=== PATIENT | female | born 1950 | race Caucasian/White ===

== ENCOUNTER → 2018-01-15 07:38 | Outpatient (CLI) | payer MEDICARE, OTHER, SELFPAY ==
[2018-01-15 08:40] LABS: Alanine Aminotransferase 26 IU/L (9-52); Albumin 4.2 g/dL (3.5-5.0); Albumin Globulin Ratio 1.4 (1.0-2.8); Alkaline Phosphatase 47 U/L (38-126); Aspartate Aminotransferase 19 IU/L (14-36); BUN Creatinine Ratio 27.1 (6-22); Bilirubin Total 0.6 mg/dL (0.2-1.3); Blood Urea Nitrogen 19 mg/dL (7-17); Calcium 9.4 mg/dL (8.4-10.2); Carbon Dioxide 32 mmol/L (22-32); Chloride 107 mmol/L (98-107); Cholesterol 242 mg/dL (140-199); Estimated Glomerular Filt Rate > 60.0 mL/min (>60); Glucose 92 mg/dL (80-110); HDL Cholesterol 64 mg/dL (40-60); HEMOLYSIS < 15 (0-50); LDL Cholesterol Calculated 165 mg/dL (<100); Potassium 4.2 mmol/L (3.4-5.1); Sodium 146 mmol/L (137-145); Total Protein 7.2 g/dL (6.3-8.2); Triglycerides 63 mg/dL (35-150)
== END ==
PROVIDERS: PCP Physician Assistant; Visit Provider Physician Assistant
DX: M85.80 Other specified disorders of bone density and structure, unspecified site (principal)
CPT/HCPCS: 36415; 80053; 80061

== ENCOUNTER → 2018-01-30 12:55 | Outpatient (CLI) | payer MEDICARE, OTHER, SELFPAY ==
[2018-02-02 16:14] LABS: Fecal Immunochemical Test NOT DETECTED
== END ==
PROVIDERS: Family Provider Physician Assistant; PCP Physician Assistant; Visit Provider Physician Assistant
DX: Z12.11 Encounter for screening for malignant neoplasm of colon (principal)
CPT/HCPCS: 82274

== ENCOUNTER → 2018-02-01 08:42 | Outpatient (CLI) | payer MEDICARE, OTHER, SELFPAY ==
--- NOTE | 2018-02-01 08:43 | DI.MG.S_ITS ---
BILATERAL DIGITAL SCREENING MAMMOGRAM 3D/2D WITH CAD: 02/01/2018 CLINICAL: Routine screening. Comparison is made to exams dated: 09/17/2016 mammogram, 03/21/2015 mammogram, and 05/14/2013 mammogram - [facility]. There are scattered fibroglandular elements in both breasts. Current study was also evaluated with a Computer Aided Detection (CAD) system. There is an asymmetry in the right breast posterior depth outer region seen on the craniocaudal view only. No other significant masses, calcifications, or other findings are seen in either breast. IMPRESSION: INCOMPLETE: NEEDS ADDITIONAL IMAGING EVALUATION The asymmetry in the right breast is indeterminate. Additional views with possible ultrasound are recommended. This exam was interpreted at Station ID: [id number]. NOTE: For mammograms, a report in lay terms will be sent to the patient. Approximately 15% of breast malignancies will not be visualized mammographically. In the management of a palpable breast mass, a negative mammogram must not discourage biopsy of a clinically suspicious lesion. Electronically Signed By: Terence Quijano M.D. ecl/:02/03/2018 08:48:13 letter sent: Additional Imaging Needed ACR BI-RADS Category 0: Incomplete 3340F
== END ==
PROVIDERS: Family Provider Physician Assistant; PCP Physician Assistant; Visit Provider Physician Assistant
DX: Z12.31 Encounter for screening mammogram for malignant neoplasm of breast (principal)
CPT/HCPCS: 77063; 77067

== ENCOUNTER → 2018-02-21 08:36 | Outpatient (CLI) | payer MEDICARE, OTHER, SELFPAY ==
--- NOTE | 2018-02-21 | DI.MG.S_ITS ---
UNILATERAL RIGHT DIGITAL DIAGNOSTIC MAMMOGRAM 3D/2D WITH ADDITIONAL VIEWS: 02/21/2018 CLINICAL: Additional evaluation requested from prior study. Comparison is made to exams dated: 02/01/2018 mammogram, 09/17/2016 mammogram, and 03/21/2015 mammogram - [facility]. There are scattered fibroglandular elements in right breast. There is a subtle asymmetry in the right breast posterior depth at 7 o'clock. This is less prominent on additional views. No other significant masses or calcifications are seen in the breast. IMPRESSION: INCOMPLETE: NEEDS ADDITIONAL IMAGING EVALUATION The asymmetry in the right breast is indeterminate. A targeted ultrasound of the right breast is recommended and will be performed immediately following this exam. This exam was interpreted at Station ID: [id number]. NOTE: For mammograms, a report in lay terms will be sent to the patient. Approximately 15% of breast malignancies will not be visualized mammographically. In the management of a palpable breast mass, a negative mammogram must not discourage biopsy of a clinically suspicious lesion. Electronically Signed By: Hellen Chavez M.D. lk/:02/21/2018 09:14:46 letter sent: Additional Imaging Needed ACR BI-RADS Category 0: Incomplete 3340F
--- NOTE | 2018-02-21 08:38 | DI.US.S_ITS ---
ULTRASOUND OF RIGHT BREAST: 02/21/2018 CLINICAL: Patient returns for additional imaging over a suspected mass in the right breast. Comparison is made to exams dated: 02/21/2018 mammogram, 02/01/2018 mammogram, and 09/17/2016 mammogram - [facility]. Color flow, real-time, and Doppler ultrasound of the right breast were performed on the areas of interest. There is a 1.8 cm x 1.4 cm x 1.4 cm irregular mass in the right breast at 7 o'clock middle depth. This irregular mass displays posterior acoustic shadowing. This correlates with mammography findings. IMPRESSION: SUSPICIOUS OF MALIGNANCY The 1.8 cm x 1.4 cm x 1.4 cm irregular mass in the right breast is at an intermediate suspicion for malignancy. An ultrasound guided biopsy is recommended. This exam was interpreted at Station ID: [id number]. SUMMARY: This was discussed with the patient by Dr. Jez Grace at [facility] at the time of the exam. Electronically Signed By: Hellen Chavez M.D. lk/:02/21/2018 13:37:17 letter sent: Biopsy Required Ultrasound BI-RADS: 4b Suspicious abnormality - intermediate suspicion of malignancy
== END ==
PROVIDERS: Family Provider Physician Assistant; PCP Physician Assistant; Visit Provider Physician Assistant
DX: R92.8 Other abnormal and inconclusive findings on diagnostic imaging of breast (principal); N63.13 Unspecified lump in the right breast, lower outer quadrant
CPT/HCPCS: 76642; 77065; G0279

== ENCOUNTER → 2018-03-14 12:39 | Outpatient (CLI) | payer MEDICARE, OTHER, SELFPAY ==
--- NOTE | 2018-03-14 | DI.US.S_ITS ---
ULTRASOUND OF RIGHT BREAST: 03/14/2018 CLINICAL: Pt sched for biopsy but no focal mass could be seen today. Comparison is made to exams dated: 02/21/2018 ultrasound, 02/21/2018 mammogram, 02/01/2018 mammogram, 09/17/2016 mammogram, and 03/21/2015 mammogram - [facility]. Color flow and real-time ultrasound of the right breast were performed on the areas of interest. Urena scale images of the real-time examination were reviewed. The 1.8 cm x 1.4 cm x 1.4 cm irregular mass in the right breast at 7 o'clock middle depth is no longer seen. The planned biopsy was therefore cancelled. IMPRESSION: PROBABLY BENIGN A follow-up mammogram and an ultrasound in 6 months is recommended to demonstrate stability. Findings and recommendations were discussed in detail with the patient at the time of the examination and all questions were answered. This exam was interpreted at Station ID: [id number]. Electronically Signed By: Eduardo shay/:03/14/2018 13:50:06 letter sent: Followup Recommended Ultrasound BI-RADS: 3 Probably benign
== END ==
PROVIDERS: Family Provider Physician Assistant; PCP Physician Assistant; Visit Provider Physician Assistant
DX: R92.8 Other abnormal and inconclusive findings on diagnostic imaging of breast (principal); N63.13 Unspecified lump in the right breast, lower outer quadrant
CPT/HCPCS: 76642

== ENCOUNTER 2018-04-03 21:41 | Emergency (ER) | payer MEDICARE, OTHER, SELFPAY ==
[2018-04-03 21:58] VITALS: BP 138/74; PULSE 69; RESP 22; TEMP 36.8; O2SAT 100; BMI 25.4
--- NOTE | 2018-04-03 22:06 | ED_ITS ---
HPI - Syncope General Chief Complaint: Syncope Stated Complaint: NOT FEELING WELL, PASSED OUT EARLIER Time Seen by Provider: 04/03/18 21:53 Source: patient and family Mode of arrival: ambulatory Limitations: no limitations History of Present Illness HPI narrative: Patient is a 67-year-old otherwise healthy female here for evaluation of a syncopal episode that occurred earlier today. The patient states that she had a friend over. She states that they did have something the eat and after the friend left she started have some lower abdominal cramping. She states that she went to go use the restroom. She states that she did have a well-formed bowel movement that was not for her to go to the bathroom. She states that while she was sitting on the toilet she became lightheaded. She called for her who came into the restroom. When she stood up the stated that the patient did pass out. She did not fall or hit her head. The was able to get the patient to the bed. There was no seizure -like activity. Patient states she continued to not feel very good. She again had to go use the restroom when she went to the bathroom had a large very loose bowel movement that did have some bright red blood in it. The patient states that since then she has not felt very well. No fevers. No headache. Is still occasionally having some crampy abdominal pain but has not had another bowel movement since the loose bowel movement. No urinary symptoms. No vaginal bleeding. Related Data Home Medications Medication Instructions Recorded Confirmed [VITAMIN D] 800 iu PO QDAY #0 08/27/16 01/22/18 multivitamin PO 01/22/18 01/22/18 Previous Rx's Medication Instructions Recorded pneumococcal 13-angy conj 0.5 ml IM ONCE #0.5 ml 01/22/18 vaccine-dip crm (PF) 0.5 mL IM syringe varicella-zoster glycoE vacc-[id number] 0.5 ml IM ONCE #1 each 01/22/18 adj(PF) 50 mcg/0.5 mL IM susp, kit Allergies Allergy/AdvReac Type Severity Reaction Status Date / Time codeine [CODEINE] AdvReac Mild DISORIENTED Verified 04/03/18 21:58 Review of Systems Constitutional Reports fatigue, Denies fever(s), Denies frequent falls, Reports lethargy and Reports malaise Eyes Denies blurry vision, Denies change in vision and Denies diplopia Cardiovascular Denies chest pain, Denies palpitations and Denies dyspnea Respiratory Denies cough and Denies dyspnea Gastrointestinal Gastrointestinal: Reports hematochezia, Denies constipation, Reports cramping, Reports diarrhea, Reports loose stools, Denies nausea and Denies vomiting Genitourinary Denies dysuria Musculoskeletal Denies myalgias and Denies arthralgias Integumentary/Breasts Denies lesions and Denies rash Neurologic Denies frequent falls Endocrine Reports fatigue and Denies palpitations Hematologic/Lymphatic Denies easy bleeding and Denies easy bruising PFSH Medical History Osteopenia (Chronic ~2013) Hyperlipemia (Resolved ~2007) Surgical History Hx of cervical polypectomy (Resolved ~06/2010) Hx of skin graft (Resolved 10/2011) Hx of tubal ligation (Resolved 1982) Family History Father Malignant melanoma, unspecified site Mother Hyperlipidemia Social History Smoking Status: Never smoker Exam Initial Vital Signs Initial Vital Signs: Vital Signs Temperature 98.3 F 04/03/18 21:58 Pulse Rate 69 04/03/18 21:58 Respiratory Rate 22 04/03/18 21:58 Blood Pressure 138/74 04/03/18 21:58 Pulse Oximetry 100 04/03/18 21:58 Const General: cooperative, comfortable, well developed, well groomed and No acute distress Orientation: alert, awake and oriented x3 HENMT Head: normal to inspection and normocephalic Resp Effort & Inspection: normal respiratory effort Auscultation: clear to auscultation bilaterally Cardio Rate: regular rate Rhythm: regular rhythm Pulses: radial pulses present GI Inspection: non-distended Palpation: soft and No firm Skin Lesions: no lesions Rashes: no rashes Neuro General: alert, awake and oriented x3 Cognition: normal cognition Speech: speech normal Gait: normal gait Motor: muscle tone normal throughout Sensory Exam: no sensory deficits noted Extrem General: normal to inspection and capillary refill normal Psych Appearance: grossly normal and well kempt Course Orders Ordered: ED Orders 04/03/18 22:00 EKG-12 Lead Stat 04/03/18 22:31 Complete Blood Count AUTO DIFF Stat Comprehensive Metabolic Panel Stat Lipase Stat Discontinued Medications Sodium Chloride (Normal Saline 0.9%) 1,000 mls @ 1,000 mls/hr IV BOLUS ONE Stop: 04/03/18 23:16 Last Infusion: 04/04/18 00:26 Dose: 0 mls/hr Admin: 04/03/18 22:45 Dose: 1,000 mls/hr Vital Signs - 8 hr 04/03/18 21:58 04/03/18 23:12 04/04/18 00:26 Temperature 98.3 F Pulse Rate 69 60 63 Respiratory Rate 22 18 Blood Pressure 138/74 129/68 Blood Pressure [Left Arm] 127/68 Pulse Oximetry 100 98 MDM - Syncope Lab Data Attestation: I reviewed the patient's lab results. Result diagrams: 04/03/18 22:31 04/03/18 22:31 Lab Results 04/03/18 04/03/18 Range/Units 22:31 22:31 WBC 12.8 H (4.5-11.0) X10^3/uL RBC 4.12 (4.0-5.2) X10^6/uL Hgb 12.4 (12.0-16.0) g/dL Hct 36.9 (36-46) % MCV 89.6 (80-100) fL MCH 30.1 (26-34) PG MCHC 33.6 (30-36) % RDW 13.1 (11.6-14.8) % Plt Count 183 (150-400) X10^3/uL Neut % (Auto) 84.8 H (50-75) % Lymph % (Auto) 10.3 L (25-40) % [place] % (Auto) 4.6 (3-14) % Eos % (Auto) 0.1 L (2-4) % Baso % (Auto) 0.2 (0-2) % Neut # (Auto) 55161 H (9344-1138) /uL Sodium 140 (137-145) mmol/L Potassium 3.6 (3.4-5.1) mmol/L Chloride 104 (98-107) mmol/L Carbon Dioxide 24 (22-32) mmol/L BUN 18 H (7-17) mg/dL Creatinine 0.60 (0.52-1.04) mg/dL Estimated GFR > 60.0 (>60) mL/min BUN/Creatinine Ratio 30.0 H (6-22) Glucose 134 H (80-110) mg/dL Calcium 9.3 (8.4-10.2) mg/dL Total Bilirubin 0.5 (0.2-1.3) mg/dL AST 23 (14-36) IU/L ALT 24 (9-52) IU/L Alkaline Phosphatase 54 (38-126) U/L Total Protein 7.2 (6.3-8.2) g/dL Albumin 4.4 (3.5-5.0) g/dL Globulin 2.8 (1.7-4.1) g/dL Albumin/Globulin Ratio 1.6 (1.0-2.8) Lipase 97 (23-300) U/L ECG Data Attestation: I personally reviewed and interpreted this ECG as follows: Prior ECG tracings: not available for review Interpretation: Sinus bradycardia Ventricular rate of 54 Normal axis Normal QRS Normal QTC No ST T wave changes MDM Narrative Medical decision making narrative: Patient's labs unremarkable. She has a benign abdominal exam. EKG is unremarkable. She is not hypotensive. She did not hit her head. Has a normal neurologic exam. I feel that a head CT would be unhelpful in the situation given her presenting symptoms in her history and physical exam. Her symptoms do very much sound like a vasovagal given the fact that she had just had a bowel movement, she became sweaty during the time in the was no signs of seizure. Patient is not anemic. Not hypotensive. One episode of bleeding with this bowel movement. Feel that we could hold on a abdominal CT for now. Patient did ambulate around the emergency department without any issues. She was in instructed to increase her fluid intake. She was given return precautions. She expressed understanding and agreement with plan. Discharge Plan Departure Patient Disposition: Home Clinical Impression: Vasovagal syncope Discharge Date/Time: 04/04/18 00:29 Interventions: ED Discharge Assessment Last Done: 04/04/18 00:26 Instructions: DI for Syncope in Adults (Fainting) Activity Restrictions/Additional Instructions: Recommend that for the next several days you increase your fluid intake especially if you continue to have diarrhea. I would talk with her primary care doctor about the blood that you had in her stool. If he starts to have worsening abdominal pain, fevers, you pass out again redeveloped any other new symptoms return to the emergency department. Continue all of your medications as directed. Prescriptions: No Action multivitamin PO RF: 0 pneumoc 13-angy conj-dip cr(PF) [Prevnar 13 (PF)] 0.5 mL syringe 0.5 ml IM ONCE Qty: 0.5 RF: 0 varicella-zoster gE-AS01B (PF) [Shingrix (PF)] 50 mcg/0.5 mL suspension for reconstitution 0.5 ml IM ONCE Qty: 1 RF: 1 [VITAMIN D] 800 iu PO QDAY Qty: 0 RF: 0
[2018-04-03 22:35] LABS: Add Manual Diff / Slide Review NO; Basophils Percent Auto 0.2 % (0-2); Eosinophils Percent Auto 0.1 % (2-4); Hematocrit 36.9 % (36-46); Hemoglobin 12.4 g/dL (12.0-16.0); Lymphocytes Percent Auto 10.3 % (25-40); Mean Corpuscular HGB Conc 33.6 % (30-36); Mean Corpuscular Hemoglobin 30.1 PG (26-34); Mean Corpuscular Volume 89.6 fL (80-100); Monocytes Percent Auto 4.6 % (3-14); Neutrophils Absolute Auto 10900 /uL (3000-5900); Neutrophils Percent Auto 84.8 % (50-75); Platelet Count 183 X10^3/uL (150-400); Red Blood Cell Count 4.12 X10^6/uL (4.0-5.2); Red Cell Distribution Width 13.1 % (11.6-14.8); White Blood Cell Count 12.8 X10^3/uL (4.5-11.0)
[2018-04-03] MEDS: SODIUM CHLORIDE 0.9% 1,000 ML 1000 ML IV (22:45)
[2018-04-03 22:50] LABS: Alanine Aminotransferase 24 IU/L (9-52); Albumin 4.4 g/dL (3.5-5.0); Albumin Globulin Ratio 1.6 (1.0-2.8); Alkaline Phosphatase 54 U/L (38-126); Aspartate Aminotransferase 23 IU/L (14-36); Bilirubin Total 0.5 mg/dL (0.2-1.3); Blood Urea Nitrogen 18 mg/dL (7-17); Calcium 9.3 mg/dL (8.4-10.2); Carbon Dioxide 24 mmol/L (22-32); Chloride 104 mmol/L (98-107); Estimated Glomerular Filt Rate > 60.0 mL/min (>60); Globulin 2.8 g/dL (1.7-4.1); Glucose 134 mg/dL (80-110); HEMOLYSIS < 15 (0-50); Lipase 97 U/L (23-300); Potassium 3.6 mmol/L (3.4-5.1); Sodium 140 mmol/L (137-145); Total Protein 7.2 g/dL (6.3-8.2)
[2018-04-03 23:12] VITALS: BP 127/68; PULSE 60; RESP 18; O2SAT 98
[2018-04-04 00:26] VITALS: BP 129/68; PULSE 63
== END 2018-04-04 00:29 | disposition home or self-care (01) ==
PROVIDERS: Emergency Provider Emergency Medicine; Family Provider Physician Assistant; PCP Physician Assistant
DX: R55 Syncope and collapse (principal)
CPT/HCPCS: 36591; 80053; 83690; 85025; 93005; 96360; 96361; 99283; 99284

== ENCOUNTER → 2018-04-04 12:11 | Outpatient (CLI) | payer MEDICARE, OTHER, SELFPAY ==
[2018-04-04 15:37] LABS: Sample 1 Time UNK TIME
[2018-04-04 15:38] LABS: Occult Blood 1 Positive (Negative)
[2018-04-04 15:41] LABS: Clostridium Difficile Tox PCR Negative for C. diff
== END ==
PROVIDERS: Family Provider Physician Assistant; PCP Physician Assistant; Visit Provider Physician Assistant
DX: K62.5 Hemorrhage of anus and rectum (principal); R10.32 Left lower quadrant pain
CPT/HCPCS: 82270; 87493

== ENCOUNTER → 2018-04-04 12:49 | Outpatient (CLI) | payer MEDICARE, OTHER, SELFPAY ==
[2018-04-04 13:06] LABS: Add Manual Diff / Slide Review NO; Basophils Percent Auto 0.2 % (0-2); Eosinophils Percent Auto 0.1 % (2-4); Hematocrit 37.3 % (36-46); Hemoglobin 12.7 g/dL (12.0-16.0); Mean Corpuscular HGB Conc 34.1 % (30-36); Mean Corpuscular Hemoglobin 30.4 PG (26-34); Mean Corpuscular Volume 89.2 fL (80-100); Monocytes Percent Auto 4.3 % (3-14); Neutrophils Absolute Auto 11300 /uL (3000-5900); Neutrophils Percent Auto 80.4 % (50-75); Platelet Count 174 X10^3/uL (150-400); Red Blood Cell Count 4.19 X10^6/uL (4.0-5.2); Red Cell Distribution Width 12.9 % (11.6-14.8); White Blood Cell Count 14.1 X10^3/uL (4.5-11.0)
== END ==
PROVIDERS: Family Provider Physician Assistant; PCP Physician Assistant; Visit Provider Physician Assistant
DX: K62.5 Hemorrhage of anus and rectum (principal); R10.32 Left lower quadrant pain
CPT/HCPCS: 36415; 82270; 85025; 87493

== ENCOUNTER → 2018-04-07 08:49 | Outpatient (CLI) | payer MEDICARE, OTHER, SELFPAY ==
--- NOTE | 2018-04-07 08:56 | DI.CT.S_ITS ---
PROCEDURE: CT ABDOMEN PELVIS W CON INDICATIONS: rectal bleeding with left lower quad pain TECHNIQUE: After the administration of oral and intravenous contrast, 5 mm thick sections acquired from the diaphragms to the symphysis. 5 mm thick coronal and sagittal reformats were performed. For radiation dose reduction, the following was used: automated exposure control, adjustment of mA and/or kV according to patient size. COMPARISON: None. FINDINGS: Image quality: Excellent. ABDOMEN: Lung bases: Lung bases are clear. Heart size is normal. Solid organs: Liver is normal in size and enhancement. Gallbladder is contracted. Biliary system is non-dilated. Pancreas enhances normally. Spleen is normal in size and enhancement. A small splenule is noted. No adrenal nodules. Kidneys are normal in size and enhancement, without hydronephrosis. There is a 1.1 cm low density cortical nodule in left kidney, most likely a cyst. Peritoneum and bowel: There is colonic wall thickening and pericolonic stranding involving the splenic flexure, descending colon and proximal sigmoid colon consistent with colitis. There is a trace amount of free fluid in the left paracolic gutter. Stomach, small bowel, and colon loops are normal in caliber. No free fluid or air. Nodes and vessels: No retroperitoneal or mesenteric adenopathy. Aorta and inferior vena cava are normal in caliber. Miscellaneous: No ventral hernias. PELVIS: Genitourinary: Bladder wall thickness is normal. Miscellaneous: No inguinal hernias or adenopathy. Bones: No suspicious bony lesions. No vertebral body compression fractures. There is degenerative disc disease at L5-S1. IMPRESSION: 1. Colonic wall thickening and pericolonic stranding involving the splenic flexure, descending colon and proximal sigmoid colon consistent with colitis. Differential diagnoses include infectious colitis, inflammatory bowel disease, and less likely ischemia. Recommend clinical correlation. There is a trace amount of free fluid in the left paracolic gutter. No fluid collections to suggest abscess. Dictated by: Eulalia Gandhi M.D. on 04/07/2018 at 10:42 Approved by: Eulalia Gandhi M.D. on 04/07/2018 at 11:09
== END ==
PROVIDERS: PCP Physician Assistant; Visit Provider Physician Assistant
DX: K62.5 Hemorrhage of anus and rectum (principal); R10.32 Left lower quadrant pain; K52.9 Noninfective gastroenteritis and colitis, unspecified
CPT/HCPCS: 74177; Q9967

== ENCOUNTER → 2018-04-08 09:27 | Outpatient (CLI) | payer MEDICARE, OTHER, SELFPAY ==
[2018-04-08 09:58] LABS: Add Manual Diff / Slide Review NO; Basophils Percent Auto 0.4 % (0-2); Eosinophils Percent Auto 1.5 % (2-4); Hemoglobin 11.7 g/dL (12.0-16.0); Lymphocytes Percent Auto 45.2 % (25-40); Mean Corpuscular HGB Conc 33.4 % (30-36); Mean Corpuscular Hemoglobin 30.2 PG (26-34); Mean Corpuscular Volume 90.2 fL (80-100); Monocytes Percent Auto 7.3 % (3-14); Neutrophils Absolute Auto 2500 /uL (3000-5900); Neutrophils Percent Auto 45.6 % (50-75); Platelet Count 224 X10^3/uL (150-400); Red Blood Cell Count 3.88 X10^6/uL (4.0-5.2); Red Cell Distribution Width 12.5 % (11.6-14.8); White Blood Cell Count 5.6 X10^3/uL (4.5-11.0)
== END ==
PROVIDERS: PCP Physician Assistant; Visit Provider Physician Assistant
DX: A09 Infectious gastroenteritis and colitis, unspecified (principal); K62.5 Hemorrhage of anus and rectum
CPT/HCPCS: 36415; 85025

== ENCOUNTER → 2018-06-27 12:07 | Outpatient (CLI) | payer MEDICARE, OTHER, SELFPAY ==
[2018-06-27 12:39] LABS: Hematocrit 36.3 % (36-46); Hemoglobin 12.2 g/dL (12.0-16.0)
[2018-06-27 13:00] LABS: HEMOLYSIS < 15 (0-50); Iron 106 ug/dL (37-170)
[2018-06-27 13:10] LABS: Percent Iron Saturation 37 % (15-50); Total Iron Binding Capacity 283 ug/dL (265-497); Transferrin 225 mg/dL (206-381)
[2018-06-27 13:36] LABS: Ferritin 43.5 ng/mL (11.1-264)
== END ==
PROVIDERS: PCP Physician Assistant; Visit Provider Physician Assistant
DX: D50.0 Iron deficiency anemia secondary to blood loss (chronic) (principal); E50.0 Vitamin A deficiency with conjunctival xerosis
CPT/HCPCS: 36415; 82728; 83540; 83550; 85014; 85018

== ENCOUNTER → 2018-09-18 12:39 | Outpatient (CLI) | payer MEDICARE, OTHER, SELFPAY ==
--- NOTE | 2018-09-18 12:41 | DI.MG.S_ITS ---
UNILATERAL RIGHT DIGITAL DIAGNOSTIC MAMMOGRAM 3D/2D SHORT-TERM FOLLOW-UP: 09/18/2018 CLINICAL: Patient returns for a 6 month follow up of the right breast. Comparison is made to exams dated: 03/14/2018 ultrasound, 02/21/2018 ultrasound, 02/21/2018 mammogram, and 02/01/2018 mammogram - [facility]. There are scattered fibroglandular elements in right breast. Heterogeneous glandular tissue in the periareolar region is stable. Prior asymmetry is no longer seen in the right breast at 9 o'clock mid to posterior depth. No significant masses, calcifications, or other findings are seen in the breast. IMPRESSION: INCOMPLETE: NEEDS ADDITIONAL IMAGING EVALUATION Resolution of lateral right breast asymmetry. No change in morphology of anterior glandular tissue. Ultrasound recommended to document stability of this region. Ultrasound was subsequently performed and will be reported separately. This exam was interpreted at Station ID: [id number]. NOTE: For mammograms, a report in lay terms will be sent to the patient. Approximately 15% of breast malignancies will not be visualized mammographically. In the management of a palpable breast mass, a negative mammogram must not discourage biopsy of a clinically suspicious lesion. Electronically Signed By: Jessica cross/:09/18/2018 13:43:34 ACR BI-RADS Category 0: Incomplete 3340F
--- NOTE | 2018-09-18 12:41 | DI.US.S_ITS ---
ULTRASOUND OF RIGHT BREAST: 09/18/2018 CLINICAL: Patient returns for short term follow-up of the right breast. Comparison is made to exams dated: 09/18/2018 mammogram, 03/14/2018 ultrasound, 02/21/2018 ultrasound, 02/21/2018 mammogram, and 02/01/2018 mammogram - [facility]. Color flow and real-time ultrasound of the right breast were performed. Urena scale images of the real-time examination were reviewed. The 1.8 cm mass in the right breast at 7 o'clock anterior depth present on the 02/21/18 exam is no longer seen. There is dense fibroglandular tissue throughout the periareolar region, similar to the mammogram. A small focal area of fibroglandular tissue is present at 7 o'clock without suspicious features. No abnormalities were seen sonographically in the right breast. IMPRESSION: PROBABLY BENIGN Dense fibroglandular tissue is present. No discrete mass. A follow-up ultrasound in 6 months is recommended to demonstrate stability. Findings and recommendations were discussed with the patient in person at time of exam. Patient will be due and should undergo routine bilateral screening mammography at the time of ultrasound visit. This exam was interpreted at Station ID: [id number]. Electronically Signed By: Jessica cross/:09/22/2018 14:56:30 letter sent: Followup Recommended Ultrasound BI-RADS: 3 Probably benign
== END ==
PROVIDERS: PCP Physician Assistant; Visit Provider Physician Assistant
DX: R92.8 Other abnormal and inconclusive findings on diagnostic imaging of breast (principal)
CPT/HCPCS: 76642; 77065; G0279

== ENCOUNTER → 2019-04-28 12:27 | Outpatient (CLI) | payer MEDICARE, OTHER, SELFPAY ==
--- NOTE | 2019-04-28 12:28 | DI.MG.S_ITS ---
BILATERAL DIGITAL DIAGNOSTIC MAMMOGRAM 3D/2D SHORT-TERM FOLLOW-UP: 04/28/2019 CLINICAL: Patient returns for 12 month follow up of right breast, due for bilateral exam. Comparison is made to exams dated: 09/18/2018 mammogram, 02/21/2018 mammogram, and 02/01/2018 mammogram - [facility]. There are scattered fibroglandular elements in both breasts. The asymmetry in the right breast posterior depth lateral region seen on the craniocaudal view only seen on the prior mammograms dated 02/01/18 and 02/21/18 is no longer seen. No other significant masses, calcifications, or other findings are seen in either breast. IMPRESSION: INCOMPLETE: NEEDS ADDITIONAL IMAGING EVALUATION A targeted ultrasound of the right breast is recommended to evaluate the previously seen asymmetry in the right breast and will be performed immediately following this exam. This exam was interpreted at Station ID: [id number]. NOTE: For mammograms, a report in lay terms will be sent to the patient. Approximately 15% of breast malignancies will not be visualized mammographically. In the management of a palpable breast mass, a negative mammogram must not discourage biopsy of a clinically suspicious lesion. Electronically Signed By: Hellen cosme/:04/29/2019 10:43:34 Entry: - 04/29/2019 10:43:34 ACR BI-RADS Category 0: Incomplete [id number]
--- NOTE | 2019-04-28 12:28 | DI.US.S_ITS ---
PROCEDURE: US BREAST RT LIMITED COMPARISON: [facility], BREAST RT LIMITED, 09/18/2018, 13:28. INDICATIONS: abnormal mammogram of the right breast/ 6 month follow-up FINDINGS: IMPRESSION: Dictated by: Hellen Chavez M.D. on 04/28/2019 at 15:55 Approved by: Hellen Chavez M.D. on 04/28/2019 at 15:56
--- NOTE | 2019-04-28 13:32 | DI.US.S_ITS ---
Patient Name: MABEL CHAU date: 1950 Sex: F Attending Physician: Dustin Indications: Date: 04/28/2019 13:32 At the request of: RANJAN GUZMAN Procedure: US breast RT limited ULTRASOUND OF RIGHT BREAST: 04/28/2019 CLINICAL: 6 month follow-up of the right breast. Comparison is made to exams dated: 04/28/2019 mammogram, 09/18/2018 ultrasound, 09/18/2018 mammogram, 03/14/2018 ultrasound, 02/21/2018 ultrasound, and 02/21/2018 mammogram - [facility]. Ultrasound of the right breast was performed on the area of interest. Urena scale images of the real-time examination were reviewed. IMPRESSION: NEGATIVE There is no sonographic evidence of malignancy. There is no mammographic or sonographic abnormality seen in the right breast to correspond with the ultrasound finding on the prior ultrasound dated 02/21/18. A 1 year screening mammogram is recommended. This exam was interpreted at Station ID: [id number]. Electronically Signed By: Hellen Chavez M.D. lk/:04/28/2019 15:56:04 letter sent: Normal Exam Ultrasound BI-RADS: 1 Negative
== END ==
PROVIDERS: PCP Physician Assistant; Visit Provider Physician Assistant
DX: R92.8 Other abnormal and inconclusive findings on diagnostic imaging of breast (principal)
CPT/HCPCS: 76642; 77066; G0279

== ENCOUNTER → 2019-05-03 09:40 | Outpatient (CLI) | payer MEDICARE, OTHER, SELFPAY ==
--- NOTE | 2019-05-03 09:43 | DI.MRI.S_ITS ---
PROCEDURE: MR LUMBAR SPINE WO CON INDICATIONS: Low back pain with radiculopathy TECHNIQUE: Noncontrast sagittal T1 spin echo and T2 fast echo, sagittal STIR, axial T1 and T2 fast spin echo through the lumbar spine. In cases with scoliosis, additional coronal T2 fast spin echo may be performed. COMPARISON: None. FINDINGS: Image quality: Excellent. Alignment and Curvature: No plain films are available for comparison, for numbering purposes. Thus, for the purposes of this examination, 5 lumbar type vertebral bodies will be presumed, as denoted on the montage panel. This should be confirmed and correlated with plain films, prior to any lumbar spinal intervention. There is mild grade 1 retrolisthesis of L5 on S1. Bone Marrow: Marrow is of normal overall signal. No acute vertebral body compression fractures. There is moderate reactive signal within the endplates adjacent to the L5-S1 intervertebral disc. Spinal Cord: Conus medullaris terminates at the T12-L1 disc space level. Visualized cord demonstrates normal signal and size. Paraspinous Soft Tissues: No paravertebral masses. L1-L2: Mild facet and ligamentum flavum hypertrophy. No significant canal, nor foraminal stenosis. L2-L3: Mild disc desiccation and minimal diffuse disc bulge. Mild facet and ligament flavum hypertrophy. Mild epidural lipomatosis. Mild canal stenosis. Mild left frontal stenosis and no right foraminal stenosis. L3-L4: Mild facet and ligamentum flavum hypertrophy. Modified lipomatosis. Minimal canal stenosis. No foraminal stenosis. L4-L5: Mild disc desiccation. Moderate facet and ligamentum flavum hypertrophy. Mild epidural lipomatosis. Moderate canal stenosis. Mild subarticular foraminal stenosis bilaterally. L5-S1: Severe disc height loss and desiccation. Mild diffuse disc bulge. Mild bilateral facet hypertrophy. Mild canal stenosis. Moderate subarticular foraminal stenosis bilaterally. IMPRESSION: 1. Multilevel degenerative disc and facet disease, as well as ligamentum flavum hypertrophy and epidural lipomatosis. 2. 5 lumbar type vertebral bodies were presumed for the current report. Plain films of the lumbar spine are recommended for confirmation, prior to any lumbar spinal intervention. 3. Multilevel canal stenoses, worst at L4-L5 where there is moderate canal stenosis. 4. Multilevel foraminal stenoses, worst at L5-S1 bilaterally where there are moderate foraminal stenoses present. Dictated by: Hannah Quevedo M.D. on 05/04/2019 at 11:59 Approved by: Hannah Quevedo M.D. on 05/04/2019 at 12:02
== END ==
PROVIDERS: PCP Physician Assistant; Visit Provider Physician Assistant
DX: M51.16 Intervertebral disc disorders with radiculopathy, lumbar region (principal); M51.17 Intervertebral disc disorders with radiculopathy, lumbosacral region; M48.061 Spinal stenosis, lumbar region without neurogenic claudication; M48.07 Spinal stenosis, lumbosacral region; E88.2 Lipomatosis, not elsewhere classified
CPT/HCPCS: 72148

== ENCOUNTER → 2019-06-16 09:49 | Outpatient (CLI) | payer MEDICARE, OTHER, SELFPAY ==
--- NOTE | 2019-06-16 09:53 | DI.RAD.S_ITS ---
PROCEDURE: XR LUMBAR SPINE 2-3V INDICATIONS: Right axial low back pain hip pain TECHNIQUE: 3 views of the lumbar spine were acquired. COMPARISON: None. FINDINGS: Bones: No fracture or focal osseous destruction. Multilevel degenerative endplate sclerosis and spurring. Diffuse facet arthropathy. Trace anterolisthesis of L4 on L5. Severe L5-S1 disc space narrowing. Mild L1-L2 and L2-L3 disc space narrowing. Bilateral sacroiliac sclerosis is noted in Soft tissues: Overlying bowel gas pattern is normal. No suspicious soft tissue calcifications. IMPRESSION: Multilevel lumbar spondylosis and diffuse facet arthropathy, most pronounced at L5-S1. Dictated by: Eduardo Manuel M.D. on 06/16/2019 at 14:56 Approved by: Eduardo Manuel M.D. on 06/16/2019 at 15:01
== END ==
PROVIDERS: PCP Physician Assistant; Visit Provider Physical Medicine & Rehabilitation
DX: M54.5 Low back pain (principal); M25.551 Pain in right hip; M47.27 Other spondylosis with radiculopathy, lumbosacral region
CPT/HCPCS: 72100

== ENCOUNTER 2019-06-30 06:50 | Outpatient (CLI) | payer MEDICARE, OTHER, SELFPAY ==
--- NOTE | 2019-06-30 06:52 | DI.RAD.S_ITS ---
PROCEDURE: PAIN L/SI FACET INJ/BLK 1STL INDICATIONS: RADICULOPATHY FINDINGS: Fluoroscopic spot filming was performed to verify placement of spinal needles at the L4-L5, L5-S1 level(s), as labeled on the films. Appropriate location(s) of the needle tip(s) was confirmed by injection of iodinated contrast. Dictated by: Eduardo Manuel M.D. on 07/01/2019 at 9:29 Approved by: Eduardo Manuel M.D. on 07/01/2019 at 9:29
[2019-06-30 07:08] VITALS: BP 126/77; PULSE 67; RESP 16; TEMP 36.6; O2SAT 100
[2019-06-30 08:22] VITALS: BP 139/68; PULSE 81; RESP 16; O2SAT 99
[2019-06-30] MEDS: MIDAZOLAM 5 MG/5 ML VIAL IV (08:23)
[2019-06-30 08:27] VITALS: BP 120/74; PULSE 79; RESP 16; O2SAT 99
[2019-06-30] MEDS: IOPAMIDOL 15 ML VIAL 3 ML INJ (08:31)
[2019-06-30] MEDS: BETAMETHASONE 30 MG/5 ML MDV 6 MG INJ (08:31)
[2019-06-30 08:32] VITALS: BP 115/70; PULSE 74; RESP 16; O2SAT 98
[2019-06-30] MEDS: BUPIVACAINE 0.25% (PF) VIAL 2 ML INJ (08:32)
--- NOTE | 2019-06-30 08:34 | PC.NURSE ---
ASSISTING PT OFF TABLE AND TRANSPORTING TO POST PROC AREA IN STABLE CONDITION. PASSING RN CARE OF PT OFF TO LARISSA Glaser RN.
[2019-06-30 08:41] VITALS: BP 117/63; PULSE 70; RESP 16; O2SAT 99
--- NOTE | 2019-06-30 08:41 | P.PCN_ITS ---
Procedures Date/Time Date of procedure: 06/30/19 Time of procedure: 08:41 General Procedure description: PREOP DIAGNOSIS 1. FACET ARTHROPATHY, 2. AXIAL LBP, 3. MULTILEVEL DDD, POST OP DIAGNOSIS 1. FACET ARTHROPATHY, 2. AXIAL LBP, 3. MULTILEVEL DDD, PROCEDURES 1. FLUORSCOPICALLY GUIDED CONTRAST CONTROLLED FACET JOINT INJECTIONS RIGHT L4/5, L5/S1 SURGEON: Sami Bloom, INDICATIONS Gisselle Ward is referred by KATRIN Chan for treatment of Axial LBP FINDINGS Multilevel Facet Arthropathy with Clinically significant axial LBP DESCRIPTION OF PROCEDURE Fluoroscopically guided, contrast-controlled right L4/5, L5/S1 facet joint injections. Following review of allergy and review of potential side effects and complications, including, but not necessarily limited to, infection, allergic reaction, local tissue breakdown, stroke, temporary or permanent nerve injury, paralysis, and possible , the patient indicated that the patient understood and agreed to proceed. An informed consent document was signed by the patient, witnessed by a nurse, and placed in the patient's chart. Additionally, other treatment options including medications, modalities, and physical therapy were reviewed with the patient. After review of previous anaesthesic history and IV conscious sedation the patient was deemed safe to proceed with todays procedure with IV conscious sedation as ASA class II designation. Safety time-out was performed to confirm patient ID, procedure to be performed and site of procedure. IV sedation was accomplished with 2mg of Versed was administered by the RN after DO order, titrated to patient comfort during the course of the procedure while the patient remained responsive to all verbal commands. In the prone position, following sterile prep and drape of the lumbar region, the posterior aspect of the right L4/5, L5/S1 facet joints were identified fluoroscopically. The skin was anesthetized via a 25-gauge 1.5-inch needle with 1% lidocaine solution into the corresponding facet joints. At this point, a 22- gauge 3.5-inch spinal needle was atraumatically introduced and advanced under fluoroscopic guidance into the corresponding facet joints. Following negative aspiration, injections of approximately 0.2-cc of Isovue 200 confirmed interarticular placement without vascular uptake. Radiological data, including multiple fluoroscopic views of the lumbosacral spine, reveal a spinal needle at the right L4/5, L5/S1 facet joints. Subsequent views show flow of contrast material both superiorly and inferiorly within the joint space without vascular or intrathecal uptake. At this point, a total of 0.5cc including a mixture of 0.25cc Marcaine and 0.25cc betamethasone was injected without complication into each of the corresponding facet joints. The procedure tolerated the procedure well without signs or symptoms of complications prior to transfer to the recovery area continued monitoring without incident. The patient was then transferred to the recovery area where they were observed for an appropriate period of time after the injection. The patient reported a VAS score of 7 prior to the procedure and a post-procedure VAS of 0. Total Fluoroscopy Time: 4 seconds Total Conscious Sedation Time: 24min POST OP INSTRUCTIONS The patient was provided a Pain Log to continue to record their response to the target-specific procedure prior to follow-up visit with their referring physician. Additionally, specific post-injection care instructions and a contact number to our office were provided if concerns arise regarding possible complications associated with the procedure are suspected. Sami Bloom DO Complications: none
[2019-06-30 09:05] VITALS: BP 111/70; PULSE 81; RESP 16; O2SAT 99
--- NOTE | 2019-06-30 09:09 | PC.NURSE ---
0823: Received patient post procedure, awake, alert, and pleasant. VSS upon arrival. at side, providing supportive care.
== END 2019-06-30 08:55 | disposition home or self-care (01) ==
LOC: RAD 06:51
PROVIDERS: PCP Physician Assistant; Referring Provider Physical Medicine & Rehabilitation; Visit Provider Physical Medicine & Rehabilitation
DX: M47.816 Spondylosis without myelopathy or radiculopathy, lumbar region (principal); M47.817 Spondylosis without myelopathy or radiculopathy, lumbosacral region; M54.5 Low back pain; M51.36 Other intervertebral disc degeneration, lumbar region; M51.37 Other intervertebral disc degeneration, lumbosacral region
CPT/HCPCS: 64493; 64494; 99152; J0702; J1100; J2250; J3010

== ENCOUNTER → 2019-10-19 10:30 | Outpatient (CLI) | payer MEDICARE, OTHER, SELFPAY ==
[2019-10-22 16:14] LABS: COVID19 Sendout Not Detected (Not Detected)
== END ==
PROVIDERS: PCP Physician Assistant; Visit Provider Registered Nurse
DX: Z01.812 Encounter for preprocedural laboratory examination (principal)
CPT/HCPCS: 87635

== ENCOUNTER 2019-10-22 13:20 | Outpatient (CLI) | payer MEDICARE, OTHER, SELFPAY ==
[2019-10-22] VITALS (8 sets, daily range): BP systolic 111–130; BP diastolic 58–74; PULSE 81–767; RESP 15–16; TEMP 36.2; O2SAT 96–100
--- NOTE | 2019-10-22 13:22 | DI.RAD.S_ITS ---
PROCEDURE: PAIN SI JOINT INJECTION INDICATIONS: SACROCOCCYGEAL DISORDER FINDINGS: Fluoroscopic spot filming was performed to verify placement of spinal needles at the inferior right sacroiliac joint level(s), as labeled on the films. Appropriate location(s) of the needle tip(s) was confirmed by injection of iodinated contrast. IMPRESSION: Successful needle tip localization for inferior right SI joint injection. Dictated by: Austin Neri M.D. on 10/22/2019 at 15:08 Approved by: Austin Neri M.D. on 10/22/2019 at 15:08
[2019-10-22] MEDS: MIDAZOLAM 5 MG/5 ML VIAL IV (14:09)
[2019-10-22] MEDS: BUPIVACAINE 0.5% (PF) VIAL 2 ML INJ (14:20)
[2019-10-22] MEDS: BETAMETHASONE 30 MG/5 ML MDV 6 MG INJ (14:21)
[2019-10-22] MEDS: IOPAMIDOL 15 ML VIAL 3 ML INJ (14:21)
--- NOTE | 2019-10-22 14:29 | P.PCN_ITS ---
Procedures Date/Time Date of procedure: 10/22/19 Time of procedure: 14:29 General Procedure description: PREOP Dx: Sacroiliac joint pain/DJD POST OP DX: Sacroiliac Joint Pain/DJD Procedures: Fluoroscopic guided contrast controlled right sacroiliac joint injection Physician: Sami Bloom D.O. Indications: Gisselle is referred by LING Valdes for treatment of right sacroiliac joint DJD Description of procedure Fluoroscopic guided, contrast controlled right sacroiliac joint injection Following review of allergies and review of potential side effects and complications, including, but not necessarily limited to, infection, allergic r eaction, local tissue breakdown, temporary as well as permanent nerve injury, paralysis, stroke and possible , the patient indicated that they understood and agreed to proceed. An informed consent was signed by the patient, witnessed by a nurse, and placed in the patient's chart. Additionally, other treatment options including modalities, medications, and physical therapy were reviewed with the patient. After review of previous anaesthesic history and IV conscious sedation the patient was deemed safe to proceed with todays procedure with IV conscious sedation as ASA class II designation. Safety time-out was performed to confirm patient ID, procedure to be performed and site of procedure. IV sedation was accomplished with a combination of 3mg of Versed was administered by the RN aft er DO order, titrated to patient comfort during the course of the procedure while the patient remained responsive to all verbal commands In the prone position following sterile prep and drape of the pelvic region, the hyper lucency on in the inferior aspect of the sacroiliac joint was identified fluoroscopically the skin was anesthetized be a 25 gauge 1 eventual with approximately 2 cc of 1% lidocaine solution. At this point, a 22 gauge 3 in spinal needle was atraumatically introduced and advanced under fluoroscopic guidance into the inferior aspect of the right sacroiliac joint. Following negative aspiration, approximately 0.3cc of Isovue-300 was injected confirming intra-articular placement without vascular uptake. Radiographic data, including multiple fluoroscopic views of the pelvis, reveals a spinal needle in the sacroiliac joint hyper lucent zone. Subsequent view show flow contrast tear superiorly and inferiorly within the joint capsule without vascular intrathecal uptake. At this point a total of 1cc of 0.5% Marcaine was combined with 1cc of 6 mg of betamethasone was injected without incident. The procedure tolerated the procedure well without signs or symptoms of com plications prior to transfer to the recovery area continued monitoring without incident. The patient was then transferred to the recovery area with a bur observed for an appropriate time after the injection. The patient reverted a vas score of 7 prior to the procedure and postprocedure vas of 1. Total fluoroscopy time: 11sec Total conscious sedation time: 24min Postop instructions The patient was provided with a pain like to continue to record the patient's response to the target specific procedure prior to the patient's follow-up visit with the referring physician. Additionally, specific post injection care instructions and a contact number to our office were provided if concerns arise regarding the possible complications associated with procedure are suspected. Sami Bloom D.O. Complications: none
--- NOTE | 2019-10-22 14:32 | PC.NURSE ---
ACCEPTED CARE OF PT IN POST PROC AREA IN STABLE CONDITION.
--- NOTE | 2019-10-22 14:40 | PC.NURSE ---
Pt tolerated procedure well, assisted from table to wc with minimal assistance, transferred back to pre proc room where monitoring was resumed by ROSSY Jacobson
== END 2019-10-22 15:04 | disposition home or self-care (01) ==
LOC: RAD 13:21
PROVIDERS: PCP Nurse Practitioner Family; Referring Provider Physical Medicine & Rehabilitation; Visit Provider Physical Medicine & Rehabilitation
DX: M53.3 Sacrococcygeal disorders, not elsewhere classified (principal); M47.818 Spondylosis without myelopathy or radiculopathy, sacral and sacrococcygeal region
CPT/HCPCS: 27096; 99152; J0702; J2250; J3010

== ENCOUNTER → 2020-02-01 12:14 | Outpatient (CLI) | payer MEDICARE, OTHER, SELFPAY ==
--- NOTE | 2020-02-01 12:16 | DI.US.S_ITS ---
PROCEDURE: US ABD AORTA ANEURYSM SCREEN INDICATIONS: SCREEN TECHNIQUE: Real time scanning was performed of the aorta and iliac arteries, with image documentation. COMPARISON: None. FINDINGS: Aorta: Proximal aortic diameter measures 1.8 cm. Mid-aorta measures 1.4 cm. Distal aortic diameter is 1.3 cm. Iliac arteries: Right common iliac artery measures 0.9 cm. Left common iliac artery measures 1.0 cm. IMPRESSION: No aneurysm found. Dictated by: Austin Neri M.D. on 02/01/2020 at 13:22 Approved by: Austin Neri M.D. on 02/01/2020 at 13:23
== END ==
PROVIDERS: PCP Registered Nurse Diabetes Educator; Referring Provider Registered Nurse Diabetes Educator; Visit Provider Nurse Practitioner Family
DX: Z13.6 Encounter for screening for cardiovascular disorders (principal); M85.852 Other specified disorders of bone density and structure, left thigh; Z78.0 Asymptomatic menopausal state; Z82.49 Family history of ischemic heart disease and other diseases of the circulatory system
CPT/HCPCS: 76706; 77080

== ENCOUNTER → 2020-02-02 08:04 | Outpatient (CLI) | payer MEDICARE, OTHER, SELFPAY ==
[2020-02-02 09:34] LABS: Cholesterol 244 mg/dL (140-199); Glucose 93 mg/dL (80-110); HDL Cholesterol 63 mg/dL (40-60); LDL Cholesterol Calculated 166 mg/dL (<100); Triglycerides 76 mg/dL (35-150)
== END ==
PROVIDERS: PCP Registered Nurse Diabetes Educator; Referring Provider Nurse Practitioner Family; Visit Provider Nurse Practitioner Family
DX: Z13.6 Encounter for screening for cardiovascular disorders (principal); Z13.1 Encounter for screening for diabetes mellitus
CPT/HCPCS: 36415; 80061; 82947

== ENCOUNTER → 2020-02-09 09:59 | Outpatient (CLI) | payer MEDICARE, OTHER, SELFPAY ==
[2020-02-10 13:36] LABS: Fecal Immunochemical Test Negative (Negative)
== END ==
PROVIDERS: PCP Registered Nurse Diabetes Educator; Referring Provider Registered Nurse Diabetes Educator; Visit Provider Registered Nurse Diabetes Educator
DX: Z12.11 Encounter for screening for malignant neoplasm of colon (principal)
CPT/HCPCS: 82274

== ENCOUNTER → 2020-04-29 10:41 | Outpatient (CLI) | payer MEDICARE, OTHER, SELFPAY ==
--- NOTE | 2020-04-29 10:43 | DI.MG.S_ITS ---
BILATERAL DIGITAL SCREENING MAMMOGRAM 3D/2D WITH CAD: 04/29/2020 CLINICAL: Routine screening. Family history of breast cancer. Comparison is made to exams dated: 04/28/2019 mammogram, 02/01/2018 mammogram, 09/17/2016 mammogram, 03/21/2015 mammogram, and 05/14/2013 mammogram - [facility]. There are scattered fibroglandular elements in both breasts. Current study was also evaluated with a Computer Aided Detection (CAD) system. No significant masses, calcifications, or other findings are seen in either breast. There has been no significant interval change. IMPRESSION: NEGATIVE There is no mammographic evidence of malignancy. A 1 year screening mammogram is recommended. This exam was interpreted at Station ID: [id number]. NOTE: For mammograms, a report in lay terms will be sent to the patient. Approximately 15% of breast malignancies will not be visualized mammographically. In the management of a palpable breast mass, a negative mammogram must not discourage biopsy of a clinically suspicious lesion. Electronically Signed By: Marcelo esparza/nando:04/30/2020 21:55:25 letter sent: Normal Exam ACR BI-RADS Category 1: Negative 3341F
== END ==
PROVIDERS: PCP Registered Nurse Diabetes Educator; Referring Provider Nurse Practitioner Family; Visit Provider Nurse Practitioner Family
DX: Z12.31 Encounter for screening mammogram for malignant neoplasm of breast (principal); Z80.3 Family history of malignant neoplasm of breast
CPT/HCPCS: 77063; 77067

== ENCOUNTER → 2020-06-10 12:54 | Outpatient (CLI) | payer MEDICARE, OTHER, SELFPAY ==
[2020-06-10] MEDS: COVID-19 VACC #1, MRNA(MOD) 100 MCG/0.5 ML VIAL IM (13:07)
== END ==
PROVIDERS: PCP Registered Nurse Diabetes Educator; Visit Provider Internal Medicine
DX: Z23 Encounter for immunization (principal)
CPT/HCPCS: 0011A; 91301

== ENCOUNTER → 2020-07-08 13:28 | Outpatient (CLI) | payer MEDICARE, OTHER, SELFPAY ==
[2020-07-08] MEDS: COVID-19 VACC #2, MRNA(MOD) 100 MCG/0.5 ML VIAL IM (13:41)
== END ==
PROVIDERS: PCP Registered Nurse Diabetes Educator; Visit Provider Internal Medicine
DX: Z23 Encounter for immunization (principal)
CPT/HCPCS: 0012A; 91301

== ENCOUNTER → 2021-05-27 09:14 | Outpatient (CLI) | payer MEDICARE, OTHER, SELFPAY ==
--- NOTE | 2021-05-27 | DI.MG.S_ITS ---
BILATERAL DIGITAL SCREENING MAMMOGRAM 3D/2D WITH CAD: 05/27/2021 CLINICAL: Routine screening. Family history of breast cancer. Comparison is made to exams dated: 04/29/2020 mammogram, 04/28/2019 mammogram, and 02/01/2018 mammogram - [facility]. There are scattered fibroglandular elements in both breasts. Current study was also evaluated with a Computer Aided Detection (CAD) system. No significant masses, calcifications, or other findings are seen in either breast. There has been no significant interval change. IMPRESSION: NEGATIVE There is no mammographic evidence of malignancy. A 1 year screening mammogram is recommended. This exam was interpreted at Station ID: [id number]. NOTE: For mammograms, a report in lay terms will be sent to the patient. Approximately 15% of breast malignancies will not be visualized mammographically. In the management of a palpable breast mass, a negative mammogram must not discourage biopsy of a clinically suspicious lesion. Electronically Signed By: Marcelo esparza/nando:05/28/2021 22:47:58 letter sent: Normal Exam ACR BI-RADS Category 1: Negative 3341F
== END ==
PROVIDERS: PCP Family Medicine; Referring Provider Family Medicine; Visit Provider Family Medicine
DX: Z12.31 Encounter for screening mammogram for malignant neoplasm of breast (principal); Z80.3 Family history of malignant neoplasm of breast
CPT/HCPCS: 77063; 77067

== ENCOUNTER 2022-07-12 09:00 | Day surgery (SDC) | payer MEDICARE, OTHER, SELFPAY ==
--- NOTE | 2022-07-12 | PATH_ITS ---
[facility] Accession Number: [id number] No. of containers..01 Tissue . 01 Material submitted: . colon - DESCENDING COLON POLYP . 01 Clinical history: . DX COLONOSCOPY . 01 Diagnosis: Descending Colon, Polyp, Biopsy: Tubular adenoma. [facility] 07/17/2022 1140 Local . 01 Electronically signed: . Josefina Tavera MD, Pathologist NPI- [id number] . 01 Gross description: . Received in formalin, labeled descending colon polyp, are two 2 mm and 10 mm portions of temple tissue. Totally embedded in cassette A1. ([id number]) /FRR 07/14/2022 1631 Local . 01 Pathologist provided ICD-10: D12.4 . 01 CPT . 496415 Specimen Comment: A courtesy copy of this report has been sent to [phone] Performed at: 01 [facility] [address] [place] [address], [place], [place] [id number] MD Devyn Silva MD Phone: [phone]
[2022-07-12 10:09] VITALS: BMI 27.4
[2022-07-12 10:18] VITALS: BP 137/77; PULSE 89; RESP 16; TEMP 36.7; O2SAT 100
[2022-07-12] MEDS: LACTATED RINGERS 1,000 ML 42 ML IV (10:18)
--- NOTE | 2022-07-12 11:14 | PM.HP.1 ---
History of Present Illness History of Present Illness Date Patient Seen: 07/12/22 Time Patient Seen: 11:14 Chief complaint: Dx Colonoscopy Narrative: 71-year-old woman here for colonoscopy due to a positive fit test. She is never had a colonoscopy before. No known family history of colon cancer. Patient History Medical History (Updated 07/12/22 @ 11:15 by Ike Luna MD) Dyslipidemia Facet arthropathy, lumbar Family history of abdominal aortic aneurysm History of iron deficiency anemia Hyperlipemia (~2007) Medicare annual wellness visit, subsequent (01/26/20) Osteopenia (~2013) Postmenopausal Right hip pain Sacroiliac joint dysfunction Screening for abdominal aortic aneurysm Screening for diabetes mellitus Screening for malignant neoplasm of colon Surgical History Hx of cervical polypectomy (~06/2010) Hx of skin graft (10/2011) Hx of tubal ligation (1982) Family & Social History Family History Father Malignant melanoma, unspecified site Mother Hyperlipidemia Social History: household members spouse Tobacco & Substance use: Smoking Status Never smoker alcohol intake current alcohol intake frequency a few times a month Substance Use Type does not use Meds Home Medications and Allergies Home Medications Medication Instructions Recorded Confirmed Type multivitamin 1 tab PO DAILY 04/08/18 07/12/22 History atorvastatin 10 mg tablet 10 mg PO BEDTIME 07/12/22 07/12/22 History latanoprost 0.005 % eye drops 1 drp EYE-BOTH BEDTIME 07/12/22 07/12/22 History Allergies Allergy/AdvReac Type Severity Reaction Status Date / Time codeine [CODEINE] AdvReac Mild DISORIENTED Verified 07/12/22 10:08 Exam Vital Signs (past 8 hours): - 07/12/22 10:18 Temperature 98.1 F Pulse Rate 89 Respiratory Rate 16 Blood Pressure 137/77 Pulse Oximetry 100 Oxygen Delivery Method Room Air Oxygen Delivery Method Room Air Const General: healthy appearing Assessment & Plan Assessment and plan (1) Positive FIT (fecal immunochemical test): Status: Acute Plan 71-year-old woman here for colonoscopy due to a positive fit test. We discussed the risks and benefits of colonoscopy and she would like to proceed. Time Spent With Patient Critical Care time: I spent a total of [] minutes of critical care time on this patient's care today; this time is exclusive of procedural time.
--- NOTE | 2022-07-12 11:52 | P.OP.COLON_ITS ---
Operative Date/Time/Diagnoses Date of procedure: 07/12/22 Time of procedure: 11:53 Pre-op diagnosis: Positive fit test Post-op diagnosis: same Procedure & Clinicians Study performed: Colonoscopy Same procedure as scheduled: Yes Surgeon: Ike Luna Procedure Notes Procedure in detail: Surgeon: Ike Lnua MD Anesthesia: [facility] SPECIAL EFFECTS SPECIALIST Procedure: The patient was brought to the endoscopy suite, placed in left lateral decubitus position. The patient was connected to monitoring devices. A time-out was performed. Sedation was administered. Once the patient was adequately sedated, a digital rectal exam was performed and was normal. The scope was then inserted and advanced to the cecum where the appendiceal orifice was identified and photographed. The scope was then slowly withdrawn over greater than 6 minutes. The mucosa was thoroughly inspected. There was a 8 mm polyp on a stalk in the proximal descending colon removed with a hot snare. The rest of the colon was normal. The scope was retroflexed in the rectum. No other abnormalities were noted. The scope was straightened and removed. The patient was awakened and brought to recovery. Scope withdrawal time: 13 minutes Sedation time: 20 minutes EBL: 2 mL Findings: 8 mm polyp on a stalk in the proximal descending colon Post-procedure Disposition: PACU
[2022-07-12 11:54] VITALS: BP 111/69; PULSE 81; RESP 15; TEMP 36.1; O2SAT 99
[2022-07-12 11:59] VITALS: BP 107/61; PULSE 75; RESP 15; O2SAT 98
[2022-07-12 12:05] VITALS: BP 116/71; PULSE 75; RESP 17; TEMP 36.2
[2022-07-12 12:15] VITALS: BP 94/69; PULSE 89; RESP 15; TEMP 36.2; O2SAT 98
== END 2022-07-12 12:30 | disposition home or self-care (01) ==
PROVIDERS: PCP Family Medicine; Referring Provider Surgery; Visit Provider Surgery
PROC: 0DJD8ZZ Inspection of Lower Intestinal Tract, Via Natural or Artificial Opening Endoscopic (ICD-10-PCS; CPT 45378; principal; 2022-07-12 10:15)
DX: Z12.11 Encounter for screening for malignant neoplasm of colon (principal); R19.5 Other fecal abnormalities; D12.4 Benign neoplasm of descending colon
CPT/HCPCS: 45385; J2704

== ENCOUNTER → 2023-06-24 18:38 | Outpatient (CLI) | payer MEDICARE, OTHER, SELFPAY | PROVIDERS: PCP Family Medicine; Visit Provider Physician Assistant | DX: J02.9 Acute pharyngitis, unspecified (principal) | CPT/HCPCS: 87070; 87147 ==

== ENCOUNTER → 2023-07-11 13:12 | Outpatient (CLI) | payer MEDICARE, OTHER, SELFPAY ==
--- NOTE | 2023-07-11 | DI.MG.S_ITS ---
BILATERAL DIGITAL SCREENING MAMMOGRAM 3D/2D WITH CAD: 07/11/2023 CLINICAL: Routine screening. Family history of breast cancer. Comparison is made to exams dated: 05/27/2021 mammogram, 04/29/2020 mammogram, and 04/28/2019 mammogram - [facility]. There are scattered areas of fibroglandular density in both breasts (category b / 25%-50% glandular tissue). Current study was also evaluated with a Computer Aided Detection (CAD) system. No significant masses, calcifications, or other findings are seen in either breast. There has been no significant interval change. IMPRESSION: NEGATIVE There is no mammographic evidence of malignancy. A 1 year screening mammogram is recommended. Based on the Tyrer Cuzick model (a risk assessment model) the patient's lifetime risk is 12.3% and her 10 year risk is 7.9%. According to the ACR, ACS, and NCCN guidelines, an annual breast MRI exam along with mammogram is recommended if the patient's lifetime risk is 20% or greater. This exam was interpreted at Station ID: [id number]. NOTE: For mammograms, a report in lay terms will be sent to the patient. Approximately 15% of breast malignancies will not be visualized mammographically. In the management of a palpable breast mass, a negative mammogram must not discourage biopsy of a clinically suspicious lesion. Electronically Signed By: Rudy moses/nando:07/11/2023 16:01:15 letter sent: Normal Exam ACR BI-RADS Category 1: Negative 3341F
== END ==
PROVIDERS: PCP Family Medicine; Referring Provider Family Medicine; Visit Provider Family Medicine
DX: Z12.31 Encounter for screening mammogram for malignant neoplasm of breast (principal); Z80.3 Family history of malignant neoplasm of breast; R92.323 Mammographic fibroglandular density, bilateral breasts
CPT/HCPCS: 77063; 77067

== ENCOUNTER → 2024-08-28 17:05 | Outpatient (CLI) | payer MEDICARE, OTHER, SELFPAY ==
--- NOTE | 2024-08-28 17:07 | DI.MG.S_ITS ---
MM screening mammo BI: 08/28/2024. BI-RADS: 1 CLINICAL: 74-year old female for bilateral screening mammogram. Tyrer-Cuzick lifetime risk of 10.5%. Current reported family history of breast cancer: sister. PRIOR EXAMS 07/11/2023, 05/27/2021, 04/29/2020, 04/28/2019, 09/18/2018, 03/14/2018, 02/21/2018, 02/01/2018, 09/17/2016, 03/21/2015. MAMMOGRAPHY TECHNIQUE: 2D and 3D (tomosynthesis) digital mammographic views obtained, with additional images as needed for full coverage. Current study was also evaluated with a Computer Aided Detection (CAD) system. DENSITY B. There are scattered areas of fibroglandular density. MAMMOGRAPHY FINDINGS Bilateral: No suspicious mass, asymmetry, microcalcification, or other abnormality seen. No significant change from comparison. IMPRESSION: * No evidence of malignancy. RECOMMENDATIONS Bilateral * Annual screening mammography. OVERALL ASSESSMENT CATEGORY BI-RADS-1: Negative. The [employer] recommends annual screening mammography beginning at age 40 for women with average risk of breast cancer. ELECTRONICALLY SIGNED: Katey Reed M.D. on 08/31/2024 at 10:09:45 AM PT Interpreting Station ID: [id number]
== END ==
PROVIDERS: PCP Family Medicine; Referring Provider Family Medicine; Visit Provider Family Medicine
DX: Z12.31 Encounter for screening mammogram for malignant neoplasm of breast (principal); Z80.3 Family history of malignant neoplasm of breast
CPT/HCPCS: 77063; 77067